=== PATIENT | male | born 1950 | race Caucasian/White ===

== ENCOUNTER 2017-11-01 12:52 | Inpatient (IN) | payer MEDICARE, BC ==
[2017-11-01] MEDS ORDERED: Sodium Chloride 0.9% 10 ML Syringe FLUSH PRN (13:47)
[2017-11-01] MEDS ORDERED: cefTRIAXone 1 GM in Sodium Chloride 0.9% 50 ML IV ONE (14:22)
[2017-11-01] MEDS: Sodium Chloride 0.9% 1,000 ML IV SCH ×3 (14:30→18:02)
--- NOTE | 2017-11-01 14:53 | EDM.PDOC ---
ED HPI GENERAL MEDICAL PROBLEM - General Chief Complaint: Fever Stated Complaint: POSSIBLE BOWEL OBSTRUCTION Time Seen by Provider: 11/01/17 13:00 Source of Information: Reports: Patient History Limitations: Reports: No Limitations - History of Present Illness INITIAL COMMENTS - FREE TEXT/NARRATIVE: This is a 66yo M here for fever and concerns of bowel obstruction. He states he took miralax and had gone multiple times like 5 times earlier today. He continues to have mild abdominal tenderness but it has improved. He states he feels warm and has chills for part of today. [place]. He denies prior abdominal surgery or concerns but does get constipated. Onset: Today Duration: Hour(s):, Getting Worse Location: Reports: Generalized Severity: Moderate Improves with: Reports: None Worsens with: Reports: Movement Associated Symptoms: Reports: Fever/Chills, Malaise, Nausea/Vomiting, Weakness - Related Data Allergies Allergy/AdvReac Type Severity Reaction Status Date / Time chondroitin sulfate A Allergy Difficulty Verified 11/01/17 14:16 [From Osteo Bi-Flex] Breathing erythromycin base Allergy Abdominal Verified 11/01/17 14:13 Pain glucosamine Allergy Difficulty Verified 11/01/17 14:16 [From Osteo Bi-Flex] Breathing Home Meds: Home Meds Aspirin 81 mg PO DAILY 11/01/17 [History] Budesonide/Formoterol [Symbicort 160-4.5 MCG] 2 inh INH DAILY 11/01/17 [History] Cholecalciferol (Vitamin D3) [Vitamin D3] 1,000 units PO DAILY 11/01/17 [History ] Diltiazem HCl [Diltiazem 24Hr ER] 240 mg PO DAILY 11/01/17 [History] Flaxseed Oil [Flax Oil] 1 cap PO DAILY 11/01/17 [History] Levothyroxine Sodium [Synthroid] 112 mcg PO DAILY 11/01/17 [History] Losartan [Cozaar] 25 mg PO DAILY 11/01/17 [History] Multivit with Calcium,Iron,Min [Essential Daily] 1 tab PO DAILY 11/01/17 [ History] Tiotropium [place] [Spiriva Respimat] 2 inh INH DAILY 11/01/17 [History] Warfarin [Coumadin] 5 mg PO DAILY 11/01/17 [History] Warfarin [Coumadin] 7.5 mg PO DAILY 11/01/17 [History] atorvaSTATin Calcium [Atorvastatin Calcium] 40 mg PO DAILY 11/01/17 [History] ED ROS GENERAL - Review of Systems Review Of Systems: ROS reveals no pertinent complaints other than HPI. ED EXAM, SEPSIS - Physical Exam Exam: See Below Exam Limited By: No Limitations General Appearance: Alert, WD/WN, Moderate Distress Eye Exam: Bilateral Eye: EOMI, PERRL Ears: Normal External Exam Nose: Normal Inspection Throat/Mouth: Normal Inspection Head: Atraumatic, Normocephalic Neck: Normal Inspection Respiratory/Chest: No Respiratory Distress, Lungs Clear Cardiovascular: Normal Peripheral Pulses, Tachycardia Peripheral Pulses: 2+: Dorsalis Pedis (L), Dorsalis Pedis (R) GI/Abdominal Exam: Soft, Non-Tender, Abnormal Bowel Sounds (hyperactive) Extremities: Normal Inspection Neurological: Alert, Oriented, CN II-XII Intact Psychiatric: Normal Affect, Normal Mood Skin: Warm, Dry, Intact Course - Vital Signs Last Recorded V/S: Last Vital Signs Temp 39.0 C H 11/01/17 14:05 Pulse 127 H 11/01/17 14:05 Resp 20 11/01/17 13:00 BP 124/78 11/01/17 14:05 Pulse Ox 98 11/01/17 13:00 - Orders/Labs/Meds Orders: Active Orders 24 hr Category Date Time Status EKG Documentation Completion [RC] ASDIRECTED Care 11/01/17 13:41 Active Abdomen Pelvis wo Cont [CT] Urgent Exams 11/01/17 14:53 Ordered Chest 1V Frontal [CR] Urgent Exams 11/01/17 14:54 Ordered CULTURE BLOOD [BC] Stat Lab 11/01/17 13:20 Received CULTURE BLOOD [BC] Stat Lab 11/01/17 14:07 Ordered Piperacillin/Tazobactam [Zosyn] 4.5 gm Med 11/01/17 15:00 Ordered Sodium Chloride 0.9% [Normal Saline] 100 ml IV Q6H Sodium Chloride 0.9% [Saline Flush] Med 11/01/17 13:47 Active 10 ml FLUSH ASDIRECTED PRN Peripheral IV Insertion Adult [OM.PC] Routine Oth 11/01/17 13:47 Ordered Medication Orders Sodium Chloride (Saline Flush) 10 ml FLUSH ASDIRECTED PRN PRN Reason: Keep Vein Open Labs: Laboratory Tests 11/01/17 11/01/17 11/01/17 Range/Units 13:20 13:20 13:40 WBC 10.3 (4.0-11.0) K/uL RBC 5.40 (4.50-6.50) M/uL Hgb 16.0 (13.0-18.0) g/dL Hct 46.6 (40.0-54.0) % MCV 86 (76-96) fL MCH 29.6 (27.0-32.0) pg MCHC 34.3 (31.0-35.0) g/dL RDW 14.3 (11.0-16.0) % Plt Count 138 L (150-400) K/uL MPV 9.9 (6.0-10.0) fL Neut % (Auto) 94.5 H (45.0-70.0) % Lymph % (Auto) 2.7 L (20.0-40.0) % [place] % (Auto) 2.0 L (3.0-10.0) % Eos % (Auto) 0.6 L (1.0-5.0) % Baso % (Auto) 0.2 (0.0-0.5) % Neut # (Auto) 9.76 H (2.00-7.50) K/uL Lymph # (Auto) 0.28 L (1.50-4.00) K/uL [place] # (Auto) 0.21 (0.20-0.80) K/uL Eos # (Auto) 0.06 (0.04-0.40) K/uL Baso # (Auto) 0.02 (0.02-0.10) K/uL Sodium 138 (136-145) mmol/L Potassium 3.7 (3.5-5.1) mmol/L Chloride 103 (98-107) mmol/L Carbon Dioxide 21.2 (21.0-32.0) mmol/L Anion Gap 17.5 H (5.0-15.0) mmol/L BUN 17 (8-26) mg/dL Creatinine 1.10 (0.70-1.30) mg/dL Est Cr Clr Drug Dosing 80.01 mL/min Estimated GFR (MDRD) > 60 (>60) MLS/MIN BUN/Creatinine Ratio 15.5 (6-25) Glucose 131 H (74-100) mg/dL Lactic Acid 4.19 H (0.90-1.70) mmol/L Calcium 8.0 L (8.5-10.1) mg/dL Total Bilirubin 0.9 (0.0-1.0) mg/dL AST 31 (15-37) U/L ALT 52 (12-78) U/L Alkaline Phosphatase 70 (46-116) U/L Troponin I (0.000-0.060) ng/mL Total Protein 7.3 (6.4-8.2) g/dL Albumin 3.7 (3.4-5.0) g/dL Globulin 3.6 (2.2-4.2) g/dL Albumin/Globulin Ratio 1.0 (0.8-2.0) TSH, Ultra Sensitive 3.930 H (0.358-3.740) uIU/mL 11/01/17 Range/Units 13:41 WBC (4.0-11.0) K/uL RBC (4.50-6.50) M/uL Hgb (13.0-18.0) g/dL Hct (40.0-54.0) % MCV (76-96) fL MCH (27.0-32.0) pg MCHC (31.0-35.0) g/dL RDW (11.0-16.0) % Plt Count (150-400) K/uL MPV (6.0-10.0) fL Neut % (Auto) (45.0-70.0) % Lymph % (Auto) (20.0-40.0) % [place] % (Auto) (3.0-10.0) % Eos % (Auto) (1.0-5.0) % Baso % (Auto) (0.0-0.5) % Neut # (Auto) (2.00-7.50) K/uL Lymph # (Auto) (1.50-4.00) K/uL [place] # (Auto) (0.20-0.80) K/uL Eos # (Auto) (0.04-0.40) K/uL Baso # (Auto) (0.02-0.10) K/uL Sodium (136-145) mmol/L Potassium (3.5-5.1) mmol/L Chloride (98-107) mmol/L Carbon Dioxide (21.0-32.0) mmol/L Anion Gap (5.0-15.0) mmol/L BUN (8-26) mg/dL Creatinine (0.70-1.30) mg/dL Est Cr Clr Drug Dosing mL/min Estimated GFR (MDRD) (>60) MLS/MIN BUN/Creatinine Ratio (6-25) Glucose (74-100) mg/dL Lactic Acid (0.90-1.70) mmol/L Calcium (8.5-10.1) mg/dL Total Bilirubin (0.0-1.0) mg/dL AST (15-37) U/L ALT (12-78) U/L Alkaline Phosphatase (46-116) U/L Troponin I < 0.017 (0.000-0.060) ng/mL Total Protein (6.4-8.2) g/dL Albumin (3.4-5.0) g/dL Globulin (2.2-4.2) g/dL Albumin/Globulin Ratio (0.8-2.0) TSH, Ultra Sensitive (0.358-3.740) uIU/mL Meds: Medications Generic Name Dose Route Start Last Admin Trade Name Freq PRN Reason Stop Dose Admin Sodium Chloride 10 ml 11/01/17 13:47 Saline Flush FLUSH ASDIRECTED PRN Keep Vein Open Discontinued Medications Generic Name Dose Route Start Last Admin Trade Name Freq PRN Reason Stop Dose Admin Ceftriaxone Sodium 1 gm/ 50 mls @ 100 mls/hr 11/01/17 14:22 Sodium Chloride IV 11/01/17 14:51 ONETIME ONE Departure - Departure Time of Disposition: 15:30 Disposition: Admitted As Inpatient 65 Condition: Serious Clinical Impression: SIRS (systemic inflammatory response syndrome), Fever and chills, Left shift without diagnosis of specific infection, Tachycardia, Weakness Hypothyroidism Qualifiers: Hypothyroidism type: unspecified Qualified Code(s): E03.9 - Hypothyroidism, unspecified Atrial fibrillation Qualifiers: Atrial fibrillation type: unspecified Qualified Code(s): I48.91 - Unspecified atrial fibrillation Hyperlipidemia Qualifiers: Hyperlipidemia type: unspecified Qualified Code(s): E78.5 - Hyperlipidemia, unspecified COPD (chronic obstructive pulmonary disease) Qualifiers: COPD type: unspecified COPD Qualified Code(s): J44.9 - Chronic obstructive pulmonary disease, unspecified - Discharge Information Referrals: PCP,None [Primary Care Provider] - Forms: ED Department Discharge - Problem List & Annotations (1) Atrial fibrillation SNOMED Code(s): 64480013 Code(s): I48.91 - UNSPECIFIED ATRIAL FIBRILLATION Status: Acute Priority : High Current Visit: Yes Qualifiers: Atrial fibrillation type: unspecified Qualified Code(s): I48.91 - Unspecified atrial fibrillation (2) COPD (chronic obstructive pulmonary disease) SNOMED Code(s): 61205808 Code(s): J44.9 - CHRONIC OBSTRUCTIVE PULMONARY DISEASE, UNSPECIFIED Status : Chronic Priority: Low Current Visit: Yes Qualifiers: COPD type: unspecified COPD Qualified Code(s): J44.9 - Chronic obstructive pulmonary disease, unspecified (3) Fever and chills SNOMED Code(s): 462436820 Code(s): R50.9 - FEVER, UNSPECIFIED Status: Acute Priority: High Current Visit: Yes (4) Hyperlipidemia SNOMED Code(s): 78069803 Code(s): E78.5 - HYPERLIPIDEMIA, UNSPECIFIED Status: Acute Priority: Low Current Visit: Yes Qualifiers: Hyperlipidemia type: unspecified Qualified Code(s): E78.5 - Hyperlipidemia , unspecified (5) Hypothyroidism SNOMED Code(s): 14879659 Code(s): E03.9 - HYPOTHYROIDISM, UNSPECIFIED Status: Acute Priority: Low Current Visit: Yes Qualifiers: Hypothyroidism type: unspecified Qualified Code(s): E03.9 - Hypothyroidism , unspecified (6) Left shift without diagnosis of specific infection SNOMED Code(s): 46258553 Code(s): D72.89 - OTHER SPECIFIED DISORDERS OF WHITE BLOOD CELLS Status: Acute Priority: High Current Visit: Yes (7) SIRS (systemic inflammatory response syndrome) SNOMED Code(s): 295883590 Code(s): R65.10 - SIRS OF NON-INFECTIOUS ORIGIN W/O ACUTE ORGAN DYSFUNCTION Status: Acute Priority: High Current Visit: Yes (8) Tachycardia SNOMED Code(s): 0768379 Code(s): R00.0 - TACHYCARDIA, UNSPECIFIED Status: Acute Priority: High Current Visit: Yes (9) Weakness SNOMED Code(s): 76441938 Code(s): R53.1 - WEAKNESS Status: Acute Priority: Medium Current Visit : Yes - Problem List Review Problem List Initiated/Reviewed/Updated: Yes - My Orders Last 24 Hours: My Active Orders 11/01/17 13:20 CULTURE BLOOD [BC] Stat 11/01/17 13:41 EKG Documentation Completion [RC] ASDIRECTED 11/01/17 13:47 Sodium Chloride 0.9% [Saline Flush] 10 ml FLUSH ASDIRECTED PRN Peripheral IV Insertion Adult [OM.PC] Routine 11/01/17 14:07 CULTURE BLOOD [BC] Stat 11/01/17 14:53 Abdomen Pelvis wo Cont [CT] Urgent 11/01/17 14:54 Chest 1V Frontal [CR] Urgent 11/01/17 15:00 Piperacillin/Tazobactam [Zosyn] 4.5 gm Sodium Chloride 0.9% [Normal Saline] 100 ml IV Q6H - Assessment/Plan Last 24 Hours: My Active Orders 11/01/17 13:20 CULTURE BLOOD [BC] Stat 11/01/17 13:41 EKG Documentation Completion [RC] ASDIRECTED 11/01/17 13:47 Sodium Chloride 0.9% [Saline Flush] 10 ml FLUSH ASDIRECTED PRN Peripheral IV Insertion Adult [OM.PC] Routine 11/01/17 14:07 CULTURE BLOOD [BC] Stat 11/01/17 14:53 Abdomen Pelvis wo Cont [CT] Urgent 11/01/17 14:54 Chest 1V Frontal [CR] Urgent 11/01/17 15:00 Piperacillin/Tazobactam [Zosyn] 4.5 gm Sodium Chloride 0.9% [Normal Saline] 100 ml IV Q6H Plan: Patient admitted to Critical care unit for antibiotics and monitoring. We will start Zosyn 4.5g q6 and hydration. Tylenol 650mg q6 prn. Discussed plan of care with and patient. Discussed SIRS and concerns of sepsis.
[2017-11-01] MEDS ORDERED: Piperacillin/Tazobactam 4.5 GM in Sodium Chloride 0.9% 100 ML IV SCH (15:00)
[2017-11-01] MEDS ORDERED: Acetaminophen 325 MG Tab PO PRN ×2 (15:01→15:04)
[2017-11-01] MEDS ORDERED: Ondansetron 4 MG/2 ML SDV IV PRN (15:01)
[2017-11-01] MEDS ORDERED: Doxycycline 100 MG Cap PO ONE (17:20)
--- NOTE | 2017-11-01 18:33 | PCM.DCSUM1 ---
Discharge Summary - Hospital Course Brief History: Patient developed hypotension and managed with increasing IVF resuscitation. Lactic improvement seen with IVF rescuscitation. Patient remained tachycardic but improved and respirations remained elevated. Patient continues to have abdominal tenderness. Fever has improved with tylenol administration. - Discharge Data Discharge Date: 11/01/17 Discharge Disposition: DC/Tfer to [facility] Condition: Good - Discharge Diagnosis/Problem(s) (1) Atrial fibrillation SNOMED Code(s): 11203370 ICD Code: I48.91 - UNSPECIFIED ATRIAL FIBRILLATION Status: Acute Priority : High Current Visit: Yes Qualifiers: Atrial fibrillation type: unspecified Qualified Code(s): I48.91 - Unspecified atrial fibrillation (2) COPD (chronic obstructive pulmonary disease) SNOMED Code(s): 08791988 ICD Code: J44.9 - CHRONIC OBSTRUCTIVE PULMONARY DISEASE, UNSPECIFIED Status : Chronic Priority: Low Current Visit: Yes Qualifiers: COPD type: unspecified COPD Qualified Code(s): J44.9 - Chronic obstructive pulmonary disease, unspecified (3) Fever and chills SNOMED Code(s): 839083160 ICD Code: R50.9 - FEVER, UNSPECIFIED Status: Acute Priority: High Current Visit: Yes (4) Hyperlipidemia SNOMED Code(s): 04087019 ICD Code: E78.5 - HYPERLIPIDEMIA, UNSPECIFIED Status: Acute Priority: Low Current Visit: Yes Qualifiers: Hyperlipidemia type: unspecified Qualified Code(s): E78.5 - Hyperlipidemia , unspecified (5) Hypothyroidism SNOMED Code(s): 51349889 ICD Code: E03.9 - HYPOTHYROIDISM, UNSPECIFIED Status: Acute Priority: Low Current Visit: Yes Qualifiers: Hypothyroidism type: unspecified Qualified Code(s): E03.9 - Hypothyroidism , unspecified (6) Left shift without diagnosis of specific infection SNOMED Code(s): 63674630 ICD Code: D72.89 - OTHER SPECIFIED DISORDERS OF WHITE BLOOD CELLS Status: Acute Priority: High Current Visit: Yes (7) SIRS (systemic inflammatory response syndrome) SNOMED Code(s): 090725038 ICD Code: R65.10 - SIRS OF NON-INFECTIOUS ORIGIN W/O ACUTE ORGAN DYSFUNCTION Status: Acute Priority: High Current Visit: Yes (8) Tachycardia SNOMED Code(s): 0871552 ICD Code: R00.0 - TACHYCARDIA, UNSPECIFIED Status: Acute Priority: High Current Visit: Yes (9) Weakness SNOMED Code(s): 67313133 ICD Code: R53.1 - WEAKNESS Status: Acute Priority: Medium Current Visit : Yes - Discharge Plan Home Medications: Home Meds Aspirin 81 mg PO DAILY 11/01/17 [History] Budesonide/Formoterol [Symbicort 160-4.5 MCG] 2 inh INH DAILY 11/01/17 [History] Cholecalciferol (Vitamin D3) [Vitamin D3] 1,000 units PO DAILY 11/01/17 [History ] Diltiazem HCl [Diltiazem 24Hr ER] 240 mg PO DAILY 11/01/17 [History] Flaxseed Oil [Flax Oil] 1 cap PO DAILY 11/01/17 [History] Levothyroxine Sodium [Synthroid] 112 mcg PO DAILY 11/01/17 [History] Losartan [Cozaar] 25 mg PO DAILY 11/01/17 [History] Multivit with Calcium,Iron,Min [Essential Daily] 1 tab PO DAILY 11/01/17 [ History] Tiotropium [place] [Spiriva Respimat] 2 inh INH DAILY 11/01/17 [History] Warfarin [Coumadin] 5 mg PO DAILY 11/01/17 [History] Warfarin [Coumadin] 7.5 mg PO DAILY 11/01/17 [History] atorvaSTATin Calcium [Atorvastatin Calcium] 40 mg PO DAILY 11/01/17 [History] Forms: ED Department Discharge Referrals: PCP,None [Primary Care Provider] - - Discharge Summary/Plan Comment DC Time >30 min.: Yes Discharge Summary/Plan Comment: Patient to be transferred to ICU bed [address] [place] [address] Lopez for SIRS and sepsis. - Patient Data Vitals - Most Recent: Last Vital Signs Temp 38.2 C H 11/01/17 18:16 Pulse 94 11/01/17 18:16 Resp 23 H 11/01/17 18:16 BP 123/59 L 11/01/17 18:16 Pulse Ox 98 11/01/17 18:16 Weight - Most Recent: 113.398 kg Lab Results - Last 24 hrs: Laboratory Results - last 24 hr 11/01/17 11/01/17 11/01/17 Range/Units 13:20 13:20 13:40 WBC 10.3 (4.0-11.0) K/uL RBC 5.40 (4.50-6.50) M/uL Hgb 16.0 (13.0-18.0) g/dL Hct 46.6 (40.0-54.0) % MCV 86 (76-96) fL MCH 29.6 (27.0-32.0) pg MCHC 34.3 (31.0-35.0) g/dL RDW 14.3 (11.0-16.0) % Plt Count 138 L (150-400) K/uL MPV 9.9 (6.0-10.0) fL Neut % (Auto) 94.5 H (45.0-70.0) % Lymph % (Auto) 2.7 L (20.0-40.0) % [place] % (Auto) 2.0 L (3.0-10.0) % Eos % (Auto) 0.6 L (1.0-5.0) % Baso % (Auto) 0.2 (0.0-0.5) % Neut # (Auto) 9.76 H (2.00-7.50) K/uL Lymph # (Auto) 0.28 L (1.50-4.00) K/uL [place] # (Auto) 0.21 (0.20-0.80) K/uL Eos # (Auto) 0.06 (0.04-0.40) K/uL Baso # (Auto) 0.02 (0.02-0.10) K/uL Sodium 138 (136-145) mmol/L Potassium 3.7 (3.5-5.1) mmol/L Chloride 103 (98-107) mmol/L Carbon Dioxide 21.2 (21.0-32.0) mmol/L Anion Gap 17.5 H (5.0-15.0) mmol/L BUN 17 (8-26) mg/dL Creatinine 1.10 (0.70-1.30) mg/dL Est Cr Clr Drug Dosing 80.01 mL/min Estimated GFR (MDRD) > 60 (>60) MLS/MIN BUN/Creatinine Ratio 15.5 (6-25) Glucose 131 H (74-100) mg/dL Lactic Acid 4.19 H (0.90-1.70) mmol/L Calcium 8.0 L (8.5-10.1) mg/dL Total Bilirubin 0.9 (0.0-1.0) mg/dL AST 31 (15-37) U/L ALT 52 (12-78) U/L Alkaline Phosphatase 70 (46-116) U/L Troponin I (0.000-0.060) ng/mL Total Protein 7.3 (6.4-8.2) g/dL Albumin 3.7 (3.4-5.0) g/dL Globulin 3.6 (2.2-4.2) g/dL Albumin/Globulin Ratio 1.0 (0.8-2.0) TSH, Ultra Sensitive 3.930 H (0.358-3.740) uIU/mL Urine Color Urine Appearance (CLEAR) Urine pH (5.0-8.0) Ur Specific [place] (1.003-1.030) Urine Protein (NEGATIVE) mg/dL Urine Glucose (UA) (NEGATIVE) mg/dL Urine Ketones (NEGATIVE) mg/dL Urine Occult Blood (NEGATIVE) Urine Nitrite (NEGATIVE) Urine Bilirubin (NEGATIVE) Urine Urobilinogen (0.2-1.0) E.U./dL Ur Leukocyte Esterase (NEGATIVE) Urine RBC /HPF Urine WBC /HPF Ur Squamous Epith Cells /HPF Urine Mucus /HPF 11/01/17 11/01/17 11/01/17 Range/Units 13:41 15:05 16:40 WBC (4.0-11.0) K/uL RBC (4.50-6.50) M/uL Hgb (13.0-18.0) g/dL Hct (40.0-54.0) % MCV (76-96) fL MCH (27.0-32.0) pg MCHC (31.0-35.0) g/dL RDW (11.0-16.0) % Plt Count (150-400) K/uL MPV (6.0-10.0) fL Neut % (Auto) (45.0-70.0) % Lymph % (Auto) (20.0-40.0) % [place] % (Auto) (3.0-10.0) % Eos % (Auto) (1.0-5.0) % Baso % (Auto) (0.0-0.5) % Neut # (Auto) (2.00-7.50) K/uL Lymph # (Auto) (1.50-4.00) K/uL [place] # (Auto) (0.20-0.80) K/uL Eos # (Auto) (0.04-0.40) K/uL Baso # (Auto) (0.02-0.10) K/uL Sodium (136-145) mmol/L Potassium (3.5-5.1) mmol/L Chloride (98-107) mmol/L Carbon Dioxide (21.0-32.0) mmol/L Anion Gap (5.0-15.0) mmol/L BUN (8-26) mg/dL Creatinine (0.70-1.30) mg/dL Est Cr Clr Drug Dosing mL/min Estimated GFR (MDRD) (>60) MLS/MIN BUN/Creatinine Ratio (6-25) Glucose (74-100) mg/dL Lactic Acid 3.90 H (0.90-1.70) mmol/L Calcium (8.5-10.1) mg/dL Total Bilirubin (0.0-1.0) mg/dL AST (15-37) U/L ALT (12-78) U/L Alkaline Phosphatase (46-116) U/L Troponin I < 0.017 (0.000-0.060) ng/mL Total Protein (6.4-8.2) g/dL Albumin (3.4-5.0) g/dL Globulin (2.2-4.2) g/dL Albumin/Globulin Ratio (0.8-2.0) TSH, Ultra Sensitive (0.358-3.740) uIU/mL Urine Color Yellow Urine Appearance Clear (CLEAR) Urine pH 5.5 (5.0-8.0) Ur Specific [place] >= 1.030 (1.003-1.030) Urine Protein Trace H (NEGATIVE) mg/dL Urine Glucose (UA) Negative (NEGATIVE) mg/dL Urine Ketones Negative (NEGATIVE) mg/dL Urine Occult Blood Negative (NEGATIVE) Urine Nitrite Negative (NEGATIVE) Urine Bilirubin Negative (NEGATIVE) Urine Urobilinogen 0.2 (0.2-1.0) E.U./dL Ur Leukocyte Esterase Negative (NEGATIVE) Urine RBC Not seen /HPF Urine WBC 0-5 H /HPF Ur Squamous Epith Cells Occasional /HPF Urine Mucus Moderate /HPF LOGAN Results - Last 24 hrs: Microbiology 11/01/17 15:07 Clostridium difficile (PCR) - Final Stool / Feces - Stool, Liquid NEGATIVE CDIFF TOXIN Med Orders - Current: Current Medications Acetaminophen (Tylenol) 650 mg PO Q4H PRN PRN Reason: Pain (Mild 1-3)/fever Last Admin: 11/01/17 14:45 Dose: 650 mg Piperacillin Sod/Tazobactam (Sod 4.5 gm/ Sodium Chloride) 100 mls @ 200 mls/hr IV Q6H ZABRINA Last Admin: 11/01/17 15:00 Dose: 200 mls/hr Sodium Chloride (Normal Saline) 1,000 mls @ 999 mls/hr IV ASDIRECTED ZABRINA Last Admin: 11/01/17 18:02 Dose: 999 mls/hr Vancomycin HCl 1 gm/ Sodium (Chloride) 250 mls @ 167 mls/hr IV ONETIME ONE Stop: 11/01/17 18:48 Last Admin: 11/01/17 17:43 Dose: 167 mls/hr Ondansetron HCl (Zofran) 4 mg IV Q4H PRN PRN Reason: Nausea/Vomiting Polyethylene Glycol (Miralax) 17 gm PO BID [facility] Sodium Chloride (Saline Flush) 10 ml FLUSH ASDIRECTED PRN PRN Reason: Keep Vein Open Last Admin: 11/01/17 13:30 Dose: 10 ml Discontinued Medications Acetaminophen (Tylenol) 650 mg PO Q4H PRN PRN Reason: Temperature Doxycycline Hyclate (Vibramycin) 200 mg PO ONETIME ONE Stop: 11/01/17 17:21 Last Admin: 11/01/17 17:36 Dose: 200 mg Ceftriaxone Sodium 1 gm/ (Sodium Chloride) 50 mls @ 100 mls/hr IV ONETIME ONE Stop: 11/01/17 14:51
[2017-11-01] MEDS ORDERED: Polyethylene Glycol 3350 Powder 17 GM Packet PO SCH (20:00)
--- NOTE | 2017-11-02 11:22 | CR ---
DATE OF SERVICE: 11/01/17 CLINICAL DATA: SIRS PA AND LATERAL CHEST: The heart size is normal. The lungs are clear. No evidence of acute intrathoracic disease. [id number] [facility]
--- NOTE | 2017-11-02 11:28 | CT ---
DATE OF SERVICE: 11/01/17 CLINICAL DATA: abdominal pain, SIRS UNENHANCED ABDOMEN AND PELVIC CT: Multislice axial acquisition was performed. No priors. The lung bases are clear. The heart size is normal. There are coronary artery calcifications. The liver is normal size with homogeneous attenuation. No focal hepatic lesions. The gallbladder appears normal. The spleen appears normal. The pancreas appears normal. The right and left adrenals appear normal. The right and left kidneys appear normal. No nephrocalcinosis or nephrolithiasis. No hydronephrosis or hydroureter. There is a small amount of fluid within the bladder. It appears grossly normal. The prostate is enlarged. There are calcifications within the prostate consistent with chronic prostatitis. The appendix is not dilated. No evidence of appendicitis. There are fluid-filled loops of small bowel throughout the abdomen and pelvis with scattered air-fluid levels diffusely. They are not dilated. There are also scattered air-fluid levels within the colon. The possibility of enterocolitis should be considered. Followup imaging is recommended if clinically indicated. No free air. There is a small amount of free fluid noted within the pelvis. No adenopathy. No aortic aneurysm. There is a small periumbilical hernia containing fat. There are bilateral inguinal hernias containing fat. No other significant findings. IMPRESSION: Multiple findings as discussed above. [id number] [facility]
== END 2017-11-01 19:40 | DRG 872 ==
LOC: LB.ED 12:52 → LB.MS 15:01
PROVIDERS: ADMIT Family Medicine; ATTEND Family Medicine
DX: A41.9 Sepsis, unspecified organism (principal); E03.9 Hypothyroidism, unspecified; R65.10 Systemic inflammatory response syndrome (SIRS) of non-infectious origin without acute organ dysfunction; Z79.01 Long term (current) use of anticoagulants; J44.9 Chronic obstructive pulmonary disease, unspecified; I48.91 Unspecified atrial fibrillation; E78.5 Hyperlipidemia, unspecified; Z79.82 Long term (current) use of aspirin; Z88.1 Allergy status to other antibiotic agents; R10.819 Abdominal tenderness, unspecified site; Z88.8 Allergy status to other drugs, medicaments and biological substances; R53.1 Weakness
CPT/HCPCS: 36415; 71045; 74176; 80053; 81001; 83605; 84443; 84484; 85025; 87040; 87045; 87046; 87177; 87209; 87427; 87493; 93005; 96365; 99284-25; A0425; A0429; A9270-GY; J2543; J3370; J7030; J7050